=== PATIENT | male | born 2000 | race Caucasian/White ===

== ENCOUNTER 2019-04-03 10:36 | Emergency (ER) | payer SELFPAY ==
[~2019-04-03] VITALS: Ht 177.8 cm; Wt 81.6 kg
--- NOTE | 2019-04-03 10:52 | ED Neurological Problem ---
General Chief Complaint: Neurological Problems Stated Complaint: SEIZURES Source: patient Exam Limitations: no limitations History of Present Illness Date Seen by Provider: April 03, 2019 Time Seen by Provider: 10:47 Initial Comments This 18-year-old white male presents with a first time seizure that occurred shortly prior to presentation to the emergency department. Observers stated according to the patient that the seizure involved all 4 extremities and lasted for 30 seconds during which time the patient was unresponsive. The patient denies loss of bowel or bladder control. He denies any laceration to his tongue. The patient denies previous similar episode. The patient smokes pot daily basis. He denies any new recreational drugs. His past medical history includes surgical correction of a pyloric stenosis as an . Patient also has a " right lazy eye". The patient's feeling that he is returned to normal baseline. He denies associated fever, chills, palpitations, chest pain, shortness of breath, nausea, vomiting, diarrhea, or dysuria. Patient uses [employer] as his caregiver. Allergies and Home Medications Patient Home Medication List Home Medication List Reviewed: Yes Review of Systems Review of Systems Constitutional: No chills, No fever Eyes: Denies Blurred Vision, Denies Vision Changes Ears, Nose, Mouth, Throat: denies ear pain, denies epistaxis Respiratory: No cough Cardiovascular: No chest pain Gastrointestinal: No abdominal pain, No nausea, No vomiting Genitourinary: No dysuria, No frequency Musculoskeletal: No back pain Skin: No rash Psychiatric/Neurological: See HPI, Tonic Clonic Seizures Endocrine: No Symptoms Reported Hematologic/Lymphatic: No Symptoms Reported Past [id number]-Icjgyj Hx Past Med/Social Hx: Reviewed Nursing Past Med/Soc Hx Physical Exam Vital Signs Vital Signs - First Documented 04/03/19 10:36 Temp 98.0 Pulse 66 Resp 18 B/P (MAP) 119/86 O2 Delivery Room Air Capillary Refill : Height, Weight, BMI Height: '" Weight: lbs. oz. kg; BMI Method: General Appearance: WD/WN, no apparent distress HEENT: other (amblyopia of the right eye) Neck: full range of motion, supple Respiratory: normal breath sounds Cardiovascular: regular rate, rhythm Gastrointestinal: normal bowel sounds, non tender, soft Back: normal inspection Extremities: normal range of motion, non-tender, normal inspection Neurologic/Psychiatric: no motor/sensory deficits, alert, normal mood/affect, oriented x 3 Motor/Sensory: no motor deficit, no sensory deficit Skin: normal color, warm/dry Progress/Results/Core Measures Results/Orders Lab Results Laboratory Tests Test 04/03/19 11:09 04/03/19 12:14 Range/Units White Blood Count 4.6 4.3-11.0 10^3/uL Red Blood Count 5.55 4.35-5.85 10^6/uL Hemoglobin 15.8 13.3-17.7 G/DL Hematocrit 45 40-54 % Mean Corpuscular Volume 82 80-99 FL Mean Corpuscular Hemoglobin 29 25-34 PG Mean Corpuscular Hemoglobin Concent 35 32-36 G/DL Red Cell Distribution Width 13.0 10.0-14.5 % Platelet Count 278 130-400 10^3/uL Mean Platelet Volume 9.6 7.4-10.4 FL Neutrophils (%) (Auto) 59 42-75 % Lymphocytes (%) (Auto) 31 12-44 % Monocytes (%) (Auto) 10 0-12 % Eosinophils (%) (Auto) 1 0-10 % Basophils (%) (Auto) 0 0-10 % Neutrophils # (Auto) 2.7 1.8-7.8 X 10^3 Lymphocytes # (Auto) 1.4 1.0-4.0 X 10^3 Monocytes # (Auto) 0.4 0.0-1.0 X 10^3 Eosinophils # (Auto) 0.0 0.0-0.3 10^3/uL Basophils # (Auto) 0.0 0.0-0.1 10^3/uL Sodium Level 140 135-145 MMOL/L Potassium Level 4.1 3.6-5.0 MMOL/L Chloride Level 110 H 98-107 MMOL/L Carbon Dioxide Level 19 L 21-32 MMOL/L Anion Gap 11 5-14 MMOL/L Blood Urea Nitrogen 10 7-18 MG/DL Creatinine 0.85 0.60-1.30 MG/DL Estimat Glomerular Filtration Rate > 60 BUN/Creatinine Ratio 12 Glucose Level 98 70-105 MG/DL Calcium Level 9.6 8.5-10.1 MG/DL Corrected Calcium 8.5-10.1 MG/DL Total Bilirubin 1.3 H 0.1-1.0 MG/DL Aspartate Amino Transf (AST/SGOT) 14 5-34 U/L Alanine Aminotransferase (ALT/SGPT) 26 0-55 U/L Alkaline Phosphatase 61 40-136 U/L Total Protein 7.4 6.4-8.2 GM/DL Albumin 4.8 H 3.2-4.5 GM/DL My Orders Orders - ANH BRAVO MD Cbc With Automated Diff (04/03/19 10:44) Comprehensive Metabolic Panel (04/03/19 10:44) Ua Culture If Indicated (04/03/19 10:44) Drug Screen Stat (Urine) (04/03/19 10:44) Chest 1 View, Ap/Pa Only (04/03/19 10:44) Ekg Tracing (04/03/19 10:44) Ct Head Wo (04/03/19 10:52) Vital Signs/I&O 04/03/19 10:36 Temp 98.0 Pulse 66 Resp 18 B/P (MAP) 119/86 O2 Delivery Room Air Progress Progress Note : Time: 12:23 Progress Note The patient's neurologic exam was entirely normal. Patient's laboratory and radiographic evaluation included normal CBC, CMP, and CT of the head. Patient was observed in the emergency department for approximately 2 hours. He had no further untoward effect. I asked that the patient follow-up closely with [facility]. He was advised to return to emergency department with any further problems or questions. Departure Impression Primary Impression: Seizure Disposition: 01 HOME, SELF-CARE Condition: Improved Departure-Patient Inst. Decision time for Depature: 12:24 Referrals: NO,LOCAL PHYSICIAN (PCP) Primary Care Physician Patient Instructions: Epilepsy in Adults Add. Discharge Instructions: Follow-up with the help on Saturday. Rest over the weekend. Return to emergency department if any further problems or questions. All discharge instructions reviewed with patient and/or family. Voiced understanding. ANH BRAVO MD April 03, 2019 10:52
--- NOTE | 2019-04-03 11:01 | NUR ---
ATTEMPT X2 FOR IV SITE. LAB CONTACTED FOR BLOOD DRAW.
--- NOTE | 2019-04-03 11:12 | Diagnostic Imaging Report ---
INDICATION: Seizure. Portable chest 11:03 a.m. Heart size and pulmonary vascularity are normal. Lungs are clear. There are no effusions or pneumothoraces. IMPRESSION: Negative chest. Dictated by: Dictated on workstation # [id number]
[2019-04-03 11:13] LABS: BASOPHILS % (AUTO) 0 % (0-10); EOSINOPHILS % (AUTO) 1 % (0-10); HEMATOCRIT 45 % (40-54); HEMOGLOBIN 15.8 G/DL (13.3-17.7); LYMPHOCYTES # (AUTO) 1.4 X 10^3 (1.0-4.0); LYMPHOCYTES % (AUTO) 31 % (12-44); MEAN CORPUSCULAR HEMOGLOBIN 29 PG (25-34); MEAN CORPUSCULAR HGB CONC 35 G/DL (32-36); MEAN CORPUSCULAR VOLUME 82 FL (80-99); MEAN PLATELET VOLUME 9.6 FL (7.4-10.4); MONOCYTES # (AUTO) 0.4 X 10^3 (0.0-1.0); MONOCYTES % (AUTO) 10 % (0-12); NEUTROPHILS # (AUTO) 2.7 X 10^3 (1.8-7.8); NEUTROPHILS % (AUTO) 59 % (42-75); PLATELET COUNT 278 10^3/uL (130-400); WHITE BLOOD COUNT 4.6 10^3/uL (4.3-11.0)
--- OUTSIDE RECORDS SUMMARY | 2019-04-03 11:18 | XMS REPORT ---
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
--- OUTSIDE RECORDS SUMMARY | 2019-04-03 11:18 | XMS REPORT ---
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 Name Role Phone WELLINGTON CHAPA Unavailable Allergies No Known Allergies Problems Problem Type Condition Code Onset Dates Condition Status Problem Oppositional defiant disorder F91.3 Active Assessment Major depressive disorder, recurrent episode, mild F33.0 Active Problem Major depressive disorder, recurrent episode, mild F33.0 Active Assessment Oppositional defiant disorder F91.3 Active Medications No Known Medications Procedures Procedure Coding System Code Date Psych diagnostic evaluation, new patient CPT-4 [id number] Sep 19, 2015 Results No Known Results Summary Purpose [employer] Submission
[2019-04-03 11:37] LABS: ALANINE AMINOTRANSFERASE 26 U/L (0-55); ALBUMIN 4.8 GM/DL (3.2-4.5); ALKALINE PHOSPHATASE 61 U/L (40-136); BILIRUBIN,TOTAL 1.3 MG/DL (0.1-1.0); BUN/CREATININE RATIO 12; CALCIUM 9.6 MG/DL (8.5-10.1); CARBON DIOXIDE 19 MMOL/L (21-32); CHLORIDE 110 MMOL/L (98-107); CREATININE SERUM 0.85 MG/DL (0.60-1.30); GFR ESTIMATED > 60; GLUCOSE 98 MG/DL (70-105); POTASSIUM 4.1 MMOL/L (3.6-5.0); SODIUM 140 MMOL/L (135-145); TOTAL PROTEIN 7.4 GM/DL (6.4-8.2)
--- NOTE | 2019-04-03 11:41 | Diagnostic Imaging Report ---
PROCEDURE: CT head without contrast. TECHNIQUE: Multiple contiguous axial images were obtained through the brain without the use of intravenous contrast. Auto Exposure Controls were utilized during the CT exam to meet ALARA standards for radiation dose reduction. INDICATION: Seizure and fall with head injury CT HEAD: CT images of the head were obtained. FINDINGS: Ventricles and sulci are within normal limits for size. There is no intracranial hemorrhage identified. There is no abnormal mass effect or shift of midline structures. IMPRESSION: Unremarkable CT of the head. Dictated by: Dictated on workstation # [id number]
[2019-04-03 12:19] LABS: BILIRUBIN,URINE NEGATIVE (NEGATIVE); CLARITY,URINE CLEAR; COLOR,URINE YELLOW; GLUCOSE, URINE (UA) NEGATIVE (NEGATIVE); KETONES,URINE NEGATIVE (NEGATIVE); LEUKOCYTE ESTERASE ,URINE 1+ (NEGATIVE); NITRITE,URINE NEGATIVE (NEGATIVE); PH,URINE 5 (5-9); PROTEIN,URINE 1+ (NEGATIVE); UROBILINOGEN,URINE NORMAL (NORMAL)
[2019-04-03 12:35] LABS: AMPHETAMINE SCREEN, URINE NEGATIVE (NEGATIVE); BACTERIA,URINE NEGATIVE /HPF; BARBITURATE SCREEN URINE NEGATIVE (NEGATIVE); BENZODIAZEPINES SCREEN URINE NEGATIVE (NEGATIVE); CANNABINOID SCREEN, URINE POSITIVE (NEGATIVE); COCAINE SCREEN URINE NEGATIVE (NEGATIVE); METHADONE STAT NEGATIVE (NEGATIVE); METHAMPHETAMINE SCREEN URINE S NEGATIVE (NEGATIVE); OPIATE SCREEN URINE NEGATIVE (NEGATIVE); OXYCODONE STAT NEGATIVE (NEGATIVE); PROPOXYPHENE STAT NEGATIVE (NEGATIVE); TRICYCLIC ANTIDEPRESSANTS SCRE NEGATIVE (NEGATIVE); WBC,URINE 0-2 /HPF
== END 2019-04-03 12:58 | disposition home or self-care (01) ==
LOC: EDUNIT# 10:36 → ER 10:38
DX: R56.9 Unspecified convulsions (principal); F12.10 Cannabis abuse, uncomplicated
CPT/HCPCS: 36415; 70450; 71045; 80053; 80306; 81000; 85025